=== PATIENT | female | born 1980 | race Caucasian/White ===

== ENCOUNTER → 2023-02-22 10:03 | Outpatient (BNVA) | payer MEDICAID, SELFPAY | PROVIDERS: Visit Provider Physician Assistant Surgical ==

== ENCOUNTER 2023-03-08 13:46 | Outpatient (AMB) | payer OTHER, SELFPAY ==
--- NOTE | 2023-03-08 13:52 | MHC.OFFVISWM ---
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 Lives in [facility]. Her goal is wants to be healthy, 170 lbs. She reports first being concerned about her weight after second . She has tried multiple methods of weight loss including multiple diets and SWL porgram without permanent results. She lives with her and 3 kids. 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 She wakes at: 5:30 am bed at 9- 11 pm. Ocassional coffee - with creamer Breakfast: 8;30 am - Isopure powder mixed with banana, iced cubes and macadamia milk and sugar free syrup. OR 2 fried eggs and a few slices of yancey and tomato. Lunch: 1pm - kids leftovers, crust and cheese OR skips a meal Dinner: 6-7:30 pm - chicken breast with green beans and small amt rice. water or crystal light After dinner: nothing Other snacks: no snacks Liquids: No soda, no fruit juices or sweetened drinks. Alcohol intake: 3d/ week, few shots of vodka, tobacco: none, quit 1.5 years ago, marijuana: every day, 2-3 times per day, smoke or edibles Exercise: 3d/week - walks 1/2 mile 45 minutes - breaks 3 times. stationary bike at home 30 -45 minutes once per week. - can't check calories. Last mammogram: never Last pap smear: up to date control method: tubal ligation ALICE:0 ESS:0 GERD0: QOL: 99 PFSH Surgical History Hx of section Hx of tubal ligation Social History (Updated 02/22/23 @ 10:25 by Ginny Moreno [facility]) Alcohol intake: current Alcohol intake frequency: 0-2 drinks per day Patient Tobacco Use Status: Former Tobacco user Quit Date: 1 YR AGO Physical Exam Const General: cooperative, no acute distress and well developed Nutritional Appearance: obese Orientation/consciousness: patient oriented x3 HEENT Head: Yes normal to inspection Neck Neck: Yes normal visual inspection Thyroid: Thyroid normal Resp Effort & Inspection: normal respiratory effort Auscultation: clear to auscultation bilaterally Cardio Rate: regular rate Rhythm: regular rhythm Heart sounds: S1 normal heart sound present, S2 normal heart sound present and no murmurs GI Inspection: No distended and Yes obesity Palpation (GI): Soft to palpation, nontender and no guarding Skin General skin exam: no rashes or lesions noted and other (warm and dry) Wounds: no wounds Hair: normal Neuro General: patient oriented x3 Extrem General: Yes no pedal edema and Yes no calf tenderness Psych Attitude: cooperative Thought process: Normal thought process present Thought content: Normal thought content present Insight: Good insight present (Psych) Judgement: Good judgement present (Psych) Assessment & Plan Assessment & Plan (1) Morbid obesity: Code(s): E66.01 - Morbid (severe) obesity due to excess calories Plan: This is a 42 yo woman with morbid obesity who will start SWL program to prepare for bariatric surgery. Blood work, h pylori , CXR, ECG, Abd ULS and UGI have been ordered. She is being scheduled for RD and BH initial consultations. She will start SWL classes and watch at 3 classes before her next appt with Malorie. 1. Adequate sleep of 7-8 hours per night discussed 2. Healthy meal plan - stop skipping meals and stop all sweetened drinks All meals/MR's need to take 20 minutes to complete 8:30am - 30 gram shake 12 pm - 30 gram shake 3:30 pm- bar or cc 7 pm- dinner of 6 oz lean protein, 8 oz vegetable, 1 serving fruit Exercise - Cardio 5 d week =LS 2 miles, or walk 30 minutes 1 miel to start then 20 minute mile. The importance of avoiding and breast feeding for at least 18 months after bariatric surgery was discussed in the information session and was reinforced today. Pt will purchase body composition analyzer (recommended list given to patient) and weight herself weekly. Next appt with me in 3 weeks. Text me with any questions and weekly weights. Patient is morbidly obese and is not considered stable at this time.?I spent a total of 60 minutes reviewing/updating records, examining the patient and counseling the patient on weight management as detailed above. (2) Hypothyroid: Code(s): E03.9 - Hypothyroidism, unspecified Orders: Orders Vitamin B12 and Folate Today E03.9 - Hypothyroidism, unspecified, E66.01 - Morbid (severe) obesity due to excess calories Comprehensive Met. Panel Today E03.9 - Hypothyroidism, unspecified, E66.01 - Morbid (severe) obesity due to excess calories C Reactive Protein Today E03.9 - Hypothyroidism, unspecified, E66.01 - Morbid (severe) obesity due to excess calories Ferritin Today E03.9 - Hypothyroidism, unspecified, E66.01 - Morbid (severe) obesity due to excess calories Hemoglobin A1c Today E03.9 - Hypothyroidism, unspecified, E66.01 - Morbid (severe) obesity due to excess calories Insulin Today E03.9 - Hypothyroidism, unspecified, E66.01 - Morbid (severe) obesity due to excess calories IRON PROFILE Today E03.9 - Hypothyroidism, unspecified, E66.01 - Morbid (severe) obesity due to excess calories Lipid Panel Today E03.9 - Hypothyroidism, unspecified, E66.01 - Morbid (severe) obesity due to excess calories PTHI Today E03.9 - Hypothyroidism, unspecified, E66.01 - Morbid (severe) obesity due to excess calories TSH reflex Free T4 Today E03.9 - Hypothyroidism, unspecified, E66.01 - Morbid (severe) obesity due to excess calories Vitamin A Today E03.9 - Hypothyroidism, unspecified, E66.01 - Morbid (severe) obesity due to excess calories Vitamin B1 Today E03.9 - Hypothyroidism, unspecified, E66.01 - Morbid (severe) obesity due to excess calories Vitamin D 25-OH Total Today E03.9 - Hypothyroidism, unspecified, E66.01 - Morbid (severe) obesity due to excess calories Zinc Today E03.9 - Hypothyroidism, unspecified, E66.01 - Morbid (severe) obesity due to excess calories ECG 12 lead EKG Today E03.9 - Hypothyroidism, unspecified, E66.01 - Morbid (severe) obesity due to excess calories FL upper GI w air Today E03.9 - Hypothyroidism, unspecified, E66.01 - Morbid (severe) obesity due to excess calories Complete Blood Count Auto Diff Today E03.9 - Hypothyroidism, unspecified, E66.01 - Morbid (severe) obesity due to excess calories H Pylori Breath Test Today E03.9 - Hypothyroidism, unspecified, E66.01 - Morbid (severe) obesity due to excess calories US abdomen comp w elastography Today E03.9 - Hypothyroidism, unspecified, E66.01 - Morbid (severe) obesity due to excess calories XR chest 2V Today E03.9 - Hypothyroidism, unspecified, E66.01 - Morbid (severe) obesity due to excess calories Referrals Behavioral Health Referral E03.9 - Hypothyroidism, unspecified, E66.01 - Morbid (severe) obesity due to excess calories Nutrition/Dietitian Referral E03.9 - Hypothyroidism, unspecified, E66.01 - Morbid (severe) obesity due to excess calories Coding Level of Care Code New Pt Level 5 (58168) Diagnoses Morbid obesity E66.01 Hypothyroid E03.9
[2023-03-08 14:00] VITALS: BP 125/73; PULSE 94; TEMP 36.3; O2SAT 92; BMI 46.5
[2023-03-12 14:26] LABS: H Pylori Breath Test Negative (Negative)
== END 2023-03-08 14:44 | disposition home or self-care (01) ==
PROVIDERS: Visit Provider Physician Assistant
DX: E66.01 Morbid (severe) obesity due to excess calories (principal); Z68.42 Body mass index [BMI] 45.0-49.9, adult; E03.9 Hypothyroidism, unspecified
CPT/HCPCS: 99205

== ENCOUNTER → 2023-03-08 13:46 | Outpatient (BNVA) | payer OTHER, SELFPAY | PROVIDERS: Visit Provider Physician Assistant | DX: E66.01 Morbid (severe) obesity due to excess calories (principal); Z68.42 Body mass index [BMI] 45.0-49.9, adult; Z11.0 Encounter for screening for intestinal infectious diseases | CPT/HCPCS: 83013; 99202; 99211 ==

== ENCOUNTER 2025-04-05 16:21 | Emergency (ER) | payer OTHER, SELFPAY ==
--- NOTE | ~2025-04-05 | US_ITS ---
CLINICAL HISTORY: calf pain swelling Right lower extremity venous duplex ultrasound Comparison: None available Findings: The visualized deep veins are fully compressible with normal flow. No popliteal cyst. There are lymph nodes in the right groin with normal morphology which measure up to 1.1 cm in long axis. Impression: No deep vein thrombosis. This document has been electronically signed by: Jemima Metzger MD on 04/05/2025 18:25:39
[2025-04-05 16:30] VITALS: BP 117/58; PULSE 77; RESP 16; TEMP 36.6; O2SAT 98; BMI 32.2
--- NOTE | 2025-04-05 16:30 | ED_ITS ---
HPI - General Adult General Chief complaint: Extremity Injury, Lower Stated complaint: ? bloodclot rt leg, sent from urgent care Time Seen by Provider: 04/05/25 18:32 Source: patient, RN notes reviewed and old records reviewed Mode of arrival: ambulatory Limitations: no limitations History of Present Illness ED Provider: Judd GAMBLE narrative: Patient is a 44y/o F presenting to the ED from urgent care to rule out DVT for tenderness/swelling to right calf. Had meniscal tear, ? MCL tear to right knee 1.5 yrs ago but due to insurance issues, did not have surgery, pain has persisted. States is the last 2 mos has been bedridden due to the pain. Recently had appointment with new PCP who has referred her to ortho again for evaluation of her right knee pain. PCP was concerned that patient had some right calf tenderness and swelling, attempted to order outpatient U/S, but was told this was unavailable through [facility] on the weekend, so PCP referred pt to the ED. Patient states she already has adequate follow up regarding prior knee injury, is only here to rule out DVT. Related Data Home Medications ?Medication ?Instructions ?Recorded ?Confirmed levothyroxine 100 mcg capsule 100 mcg PO DAILY 3 Allergies Allergy/AdvReac Type Severity Reaction Status Date / Time codeine Allergy Severe Anaphylaxis Verified 04/05/25 16:32 Sulfa (Sulfonamide Allergy Mild HIVES Verified 04/05/25 16:32 Antibiotics) Review of Systems 2 Review of Systems: As per HPI Yes all other systems are reviewed and are negative PMFSH Past Medical History Surgical History Hx of section Hx of tubal ligation Social History Social History Alcohol intake: current Alcohol intake frequency: 0-2 drinks per day Patient Tobacco Use Status: Former Tobacco user Advance Directives: No Advance Directives Information Provided: No Physical Exam ED Vital Signs: Vital Signs - 24 hr 04/05/25 16:30 04/05/25 18:32 Temperature 97.8 F 97.8 F Pulse Rate 77 77 Respiratory Rate 16 16 Blood Pressure 117/58 L 117/58 L Pulse Oximetry 98 98 Oxygen Delivery Method Room Air Room Air BMI result Body Mass Index 32.2 Vital signs have been reviewed and appear to be correct. Blood pressure normal. Heart rate normal. Respiratory rate normal. Temperature normal. Oxygen saturation normal. Extrem Right lower extremity: knee (diffuse swelling), lower leg Details: tenderness Location: of the posterior calf and localized swelling Location: of the proximal lower leg and foot Details: vascular exam Details: dorsalis pedis pulse present, posterior tibial pulse present and normal capillary refill Course Course Course Narrative: This is a rapid medical exam performed by Rachelle Whaley NP: Additional HPI, ROS, PE not included below will be deferred to primary provider. Patient is a 44y/o F presenting to the ED from urgent care to rule out DVT for tenderness/swelling to right calf. Had meniscal tear, ? MCL tear to right knee 1.5 yrs ago but due to insurance issues, did not have surgery, pain has persisted. States is the last 2 mos has been bedridden due to the pain. Plan: labs, U/S Medical Decision Making Medical Decision Making [facility] Narrative: Patient is a 44y/o F presenting to the ED from urgent care to rule out DVT for tenderness/swelling to right calf. Had meniscal tear, ? MCL tear to right knee 1.5 yrs ago but due to insurance issues, did not have surgery, pain has persisted. On exam patient is awake, A+Ox3, VS WNL, afebrile, normal neurological exam without focal deficits, physical exam findings as above. Given reported symptoms and physical exam findings, initial differential includes but is not limited to DVT, calf strain/sprain. Labs grossly within normal limits. Ultrasound of right lower leg notable for no evidence of DVT. My interpretation is in agreement with the radiologist's interpretation. Results discussed with patient and all questions answered. Discussed with patient that if symptoms persist beyond the next 5-7 days, she should follow up with PCP for repeat ultrasound outpatient. Return precautions discussed. Patient verbalized understanding of and agreement with plan. Differential Diagnosis Differential Diagnoses: The differential diagnosis associated with the presentation includes As per [facility] Admission/Observation Consideration of admission/observation: Escalation of care including admission/observation considered Patient would have been admitted to the hospital and transferred to appropriate facility had their clinical presentation warranted hospital admission. Lab Data [facility] Lab Attestation statement: I reviewed the patient's lab results. as per [facility] 04/05/25 16:46 04/05/25 16:45 Labs: Lab Results 04/05/25 04/05/25 Range/Units 16:45 16:46 WBC 11.1 H (4.8-10.8) X10*3/uL RBC 3.41 L (4.20-5.50) X10*6/uL Hgb 11.8 L (12.0-16.0) g/dl Hct 35.1 L (37.0-47.0) % MCV 102.9 H (80.0-98.0) fL MCH 34.6 H (27.0-33.0) pg MCHC 33.6 (31.0-35.0) g/dl RDW 12.8 (11.0-16.0) % Plt Count 461 H (160-400) X10*3/uL MPV 9.3 L (9.4-12.3) fL Immature Gran % (Auto) 0.4 (0.0-0.4) % Neut % (Auto) 77.1 H (45-73) % Lymph % (Auto) 18.5 L (20-40) % [place] % (Auto) 3.3 (2-11) % Eos % (Auto) 0.2 (0-4) % Baso % (Auto) 0.5 (0-2) % Lymph # (Auto) 2.1 (1.2-4.9) X10*3/uL [place] # (Auto) 0.4 (0.1-1.2) X10*3/uL Eos # (Auto) 0.0 (0.0-0.4) X10*3/uL Baso # (Auto) 0.1 (0.0-0.2) X10*3/uL Abs Immat Gran (auto) 0.04 H (0.00-0.03) X10*3/uL Absolute Neuts (auto) 8.6 H (2.0-8.3) x10*3/uL Absolute Nucleated RBC 0.000 (0.0-0.012) X10*3/uL Nucleated RBC % (auto) 0.0 (0.0-0.2) /100WBC Sodium 138 (135-145) mmol/L Potassium 4.3 (3.3-5.1) mmol/L Chloride 105 (96-108) mmol/L Carbon Dioxide 25 (22-29) mmol/L Anion Gap 12 (12-20) BUN 12 (9-16) mg/dL Creatinine 0.58 (0.5-1.4) mg/dL Estim Creat Clear Calc 138.1 Estimated GFR > 60 Random Glucose 104 (60-115) mg/dL Calcium 9.5 (8.4-10.2) mg/dL Total Bilirubin 0.1 (0.0-1.0) mg/dL AST 15 (5-31) U/L ALT 9 (0-31) U/L Alkaline Phosphatase 115 (39-117) U/L Total Protein 7.7 (6.5-8.0) g/dL Albumin 4.0 (3.5-5.0) g/dL Independent Interpretation I performed an independent interpretation of an: Ultrasound Interpretation: No evidence of DVT to right lower extremity on ultrasound. Radiology Impression Discussion of test interpretation with radiology: I have reviewed the radiologist's reading. Radiologist Impression: Right lower extremity venous duplex ultrasound Comparison: None available Findings: The visualized deep veins are fully compressible with normal flow. No popliteal cyst. There are lymph nodes in the right groin with normal morphology which measure up to 1.1 cm in long axis. Impression: No deep vein thrombosis. External Record Review External record reviewed: Inpatient record, Office record and Outpatient record Discharge Plan Discharge Clinical Impression: Pain in right lower leg Patient Disposition: Home, Self-Care Additional Instructions: You were evaluated in the emergency department today for pain and swelling to her right lower leg. Your ultrasound did not show evidence of a DVT, also known as a blood clot. We recommend that you keep your follow-up appointment with your PCP and orthopedics for further evaluation of your knee pain. If you continue to have calf pain and swelling, we recommend that you discuss possible repeat ultrasound in 1 week with your PCP. Return to the emergency department with any new or concerning symptoms. Prescriptions: No Action levothyroxine 100 mcg capsule 100 mcg PO DAILY Interventions: ED Discharge Assessment Last Done: 04/05/25 18:32 Print Language: Faroese
[2025-04-05 17:01] LABS: MANUAL DIFF FLAG NO
[2025-04-05 17:03] LABS: Hematocrit 35.1 % (37.0-47.0); Hemoglobin 11.8 g/dl (12.0-16.0); Imm Gran Abs Auto 0.04 X10*3/uL (0.00-0.03); Imm Gran Pct Auto 0.4 % (0.0-0.4); Lymphocytes Absolute Auto 2.1 X10*3/uL (1.2-4.9); Mean Corpuscular HGB Conc 33.6 g/dl (31.0-35.0); Mean Corpuscular Hemoglobin 34.6 pg (27.0-33.0); Mean Corpuscular Volume 102.9 fL (80.0-98.0); NRBC Abs Auto 0.000 X10*3/uL (0.0-0.012); NRBC Pct Auto 0.0 /100WBC (0.0-0.2); Platelet Count 461 X10*3/uL (160-400); Red Blood Count 3.41 X10*6/uL (4.20-5.50); White Blood Count 11.1 X10*3/uL (4.8-10.8)
[2025-04-05 17:17] LABS: Alanine Aminotransferase 9 U/L (0-31); Albumin Level 4.0 g/dL (3.5-5.0); Alkaline Phosphatase 115 U/L (39-117); Anion Gap 12 (12-20); Aspartate Amino Transferase 15 U/L (5-31); Blood Urea Nitrogen 12 mg/dL (9-16); Calcium 9.5 mg/dL (8.4-10.2); Carbon Dioxide 25 mmol/L (22-29); Chloride 105 mmol/L (96-108); Creatinine Clr Calc Pharmacy 138.1; Estimated Glomerular Filt Rate > 60; Potassium 4.3 mmol/L (3.3-5.1); Sodium 138 mmol/L (135-145); Total Protein 7.7 g/dL (6.5-8.0)
[2025-04-05 18:32] VITALS: BP 117/58; PULSE 77; RESP 16; TEMP 36.6; O2SAT 98
--- OUTSIDE RECORDS SUMMARY | 2025-04-05 18:40 | XMS_ITS | Clinical Summary ---
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 4 Active albuterol HFA (PROAIR HFA ; PROVENTIL HFA ; VENTOLIN HFA) 90 mcg/actuation inhaler Inhale 1-2 puffs by mouth. 4 Active fluticasone HFA (FLOVENT HFA) 110 mcg/actuation inhaler Inhale 1 puff by mouth. 1 Active levothyroxine (SYNTHROID, LEVOTHROID) 112 mcg tablet 4 Active nicotine polacrilex (NICORETTE) [address] 1 lozenge (2 mg total) into mouth between cheek and gum. 4 Active loratadine (CLARITIN) 10 mg tablet Take 1 tablet (10 mg total) by mouth. 1 Active hydrOXYzine HCL (ATARAX) 10 mg tablet TAKE 1 TABLET BY MOUTH THREE TIMES A DAY NEEDED FOR ANXIETY 90 tablet 4 Active polyethylene glycol (MIRALAX) 17 gram packetIndication s:Chronic idiopathic constipation Take 17 g by mouth 1 (one) time each day. 510 g 11 5 08/05/19 26 Active Additional Information Patient not taking.Reported on 09/08/2024 Active Problems Problem Noted Date Diagnosed Date Ventral hernia without obstruction or gangrene 1 08/25/2023 Alcohol use disorder 06/24/2024 Adrenal nodule ([facility]/HCC V24) 06/24/2024 Hepatomegaly 06/24/2024 Assessment & Plan (08/05/2024 4:25 PM EST): Relieved hepatic steatosis in depth along with cirrhosis. Discussed alcohol use in depth during our visit. I have provided the patient with resources for alcohol use disorder, which include numbers for detox and clinic facilities that may assist with cutting back and/or quitting alcohol consumption. I encouraged her to call, her also noted he can help with childcare if it means she can work towards sobriety. It does appear she has a good support system in place. I briefly touched on cirrhosis and made her aware that continued alcohol use at this rate may lead to cirrhosis with time. I gave her handouts on both PEREZ and cirrhosis for review at home. She has yet to complete the bloodwork ordered by PCP for concern, which includes hepatitis panels and hepatic function test. I am adding on a few other tests to further evaluate her liver, to include a PEREZ fibrotest. Advised her if labwork is WNL, she may follow up in 1 year for U/S recall. 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 Hypothyroidism 09/01/2021 Allergic rhinitis 01/10/2021 Hidradenitis suppurativa 06/29/2020 Attention deficit hyperactivity disorder (ADHD) 05/17/2020 Chronic low back pain with sciatica 05/17/2020 Agoraphobia 12/29/2014 Anxiety 12/29/2014 Bipolar 1 disorder ([facility]/HCC V24, [facility]/HCC V28) Overview (05/07/2024): [facility] [place] 09/21/14 PTSD (post-traumatic stress disorder) 12/29/2014 Marijuana smoker 01/09/2014 Cigarette smoker 01/09/2014 Asthma 12/03/2012 Surgical History Surgery Date Site/Laterality Comments SECTION PROCEDURE: HISTORICAL ; COMMENT: x 2; 2008, 2014 Medical History Medical History Date Comments Anorexia DX:Anorexia; COM MENT: hospitalized in past, well controlled now Asthma DX:Asthma PTSD (post-traumatic stress disorder) 12/29/2014 DX:PTSD (post-traumatic stress disorder) Anxiety 12/29/2014 DX:Anxiety Bipolar 1 disorder ([facility] V24, [facility] V28) 12/29/2014 DX:Bipolar 1 disorder (HCC); COMMENT: [facility] 09/21/14 Agoraphobia 12/29/2014 DX:Agoraphobia Morbid obesity with BMI of 4 5.0-49.9, adult ([facility] V24, [facility] V28) 04/28/2022 DX:Morbid obesity wit h BMI of 45.0-49.9, adult ([facility]) Family History Medical History Relation Name Comments Diabetes Sister Biological sist er; adopted together Relation Name Status Comments Sister Alive Social History Tobacco Use Types Packs/Day Years Used Date Smoking Tobacco: Every Day Cigarettes Last attempted to quit: 07/30/2017 Smokeless Tobacco: Current Last attempted to quit: 10/14/2021 Tobacco Cessation:Ready to Q uit: Not Asked; Counseling Given: Not Answered Alcohol Use Standard Drinks/Week Comments Yes 7 (1 standard drink = 0.6 oz pur e alcohol) yes Comments No Sex and Gender Information Value Date Recorded Sex Assigned at Not on file Legal Sex Female 2:18 AM EST Gender Identity Not on file Sexual Orientation Not on file Obstetrics History Last Filed Vital Signs Vital Sign Reading Time Taken Comments Blood Pressure 116/70 09/08/2024 1:38 PM EST Pulse 94 09/08/2024 1:38 PM EST Temperature 36.3 C (97.4 F) 09/08/2024 1:38 PM EST Respiratory Rate 16 09/08/2024 1:38 PM EST Oxygen Saturation - - Inhaled Oxygen Concentration - - Weight 100 kg (220 lb 9.6 oz) 09/08/2024 1:38 PM EST Height 165.1 cm (5' 5 ) 08/07/2024 2:52 PM EST Body Mass Index 36.71 08/07/2024 2:52 PM EST Plan of Treatment Health Maintenance Due Date Last Done Comments Breast Cancer Screening 1982 Hepatitis A Vaccines (1 of 2 - Risk 2-dose series) 2001 Hepatitis B Vaccines (1 of 3 - 19+ 3-dose series) 2001 Pneumococcal Vaccine: Pediat rics (0 to 5 Years) and At-Risk Patients (6 to 49 Years) (1 of 2 - PCV) 2001 Cervical Cancer Screening: P ap Smear 12/18/2020 12/18/2017 HIV Screening 06/18/2022 Social Influencers of Health Screening 06/18/2022 Depression Screening 07/16/2024 DTaP,Tdap,and Td Vaccines (2 - Td or Tdap) 07/22/2024 07/22/2014 COVID-19 Vaccine (1 - 2023-2 5 season) 2025 Influenza Vaccine (#1) 2025 Cholesterol Screening (Lipid Panel) 02/17/2029 02/18/2024 Hepatitis C Screening Completed 08/05/2024 HIB Vaccines Aged Out No longer eligi ble based on patient's age to complete this topic HPV Vaccines Aged Out No longer eligi ble based on patient's age to complete this topic IPV Vaccines Aged Out No longer eligi ble based on patient's age to complete this topic MMR Vaccines Aged Out No longer eligi ble based on patient's age to complete this topic Meningococcal ACWY Vaccine Aged Out N o longer eligible based on patient's age to complete this topic Meningococcal B Vaccine Aged Out No l onger eligible based on patient's age to complete this topic RSV Immunization Patients Un gael 20 months Aged Out No longer eligible b ased on patient's age to complete this topic Varicella Vaccines Aged Out No longer eligible based on patient's age to complete this topic Procedures Procedure Name Priority Date/Time Associated Diagnosis Comments HEPATITIS C ANTIBODY Routine 08/05/2024 4:48 PM EST Elevated liver enzymes PAP SMEAR Routine 12/18/2017 from Last 3 Months or Most Recently Relevant to Health Maintenance Results * Hepatitis C antibody (08/05/2024 4:48 PM EST) Hepatitis C Antibody Negative Negative LAB CHEMISTRY METHOD 08/05/2024 7:30 PM EST [facility] Blood Venous blood specimen / Unknown Venipuncture / Unknown 08/05/2024 4:48 PM EST 08/05/2024 4:48 PM EST Josef Duenas MD LAB BLOOD ORDERABLES Final Result [facility] [address] [place] [address], * Pap smear (12/18/2017) 12/18/2017 Narrative HISTORICAL TESTING LAB RESULTING AGENCY - 12/21/2017 8:06 AM EDT [id number] THINPREP PAP, IMAGED: NEGATIVE FOR SQUAMOUS INTRAEPITHELIAL LESION AND MALIGNANCY . RESULT OF APTIMA HIGH RISK HPV ASSAY: NEGATIVE (SEROTYPES 16,18,31,33,35,39,45,51,52,56,58,59,66,68) BIPIN FRANK(ASCP) (CASE ELECTRONICALLY SIGNED 12 20 2017) ADEQUACY: SATISFACTORY. ENDOCERVICAL/TRANSFORMATION ZONE COMPONENT PRESENT. SOURCE: THINPREP PAP HPV ANY DX: REFLEX 16 AND 18 CLINICAL INFORMATION: HPV ANY DIAGNOSIS. 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
--- OUTSIDE RECORDS SUMMARY | 2025-04-05 18:40 | XMS_ITS ---
Author Name [facility] Organization Unknown Care Team Organization Name Specialty Phone Email Start Date End Da te [facility] Bella Sherwood [facility] 05/23/2022 4
--- OUTSIDE RECORDS SUMMARY | 2025-04-05 18:40 | XMS_ITS | Clinical Summary ---
Author Organization [facility] Address [address] [place], [place] [id number] Phone Care Team Providers Care Sustainability Officer Name Role Phone Bella Sherwood MD Primary Care Provider [phone] Medications levothyroxine (SYNTHROID, LEVOTHROID) 112 MCG tabletIndication s:Jocelyn's thyroiditis TAKE 2 TABLETS BY MOUTH ON MONDAYS ONLY. TAKE 1 TAB DAILY THE REMAINDER OF THE WEEK. 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 Not on nova e 12/22/2022 Are you concerned about learning? Not on file 12/22/2022 No 12/22/2022 No 12/22/2022 Digital Access Answer Date Recorded No 12/22/2022 No 12/22/2022 Reliable internet access at home? Not on file 12/22/2022 Device with a working camera? Not on file Comments Unknown Sex and Gender Information Value Date Recorded Sex Assigned at Not on file Legal Sex Female 4:04 PM EST Gender Identity Not on file Sexual Orientation Not on file Last Filed Vital Signs Vital Sign Reading Time Taken Comments Blood Pressure 123/72 07/21/2022 10:31 AM EST Pulse 86 07/21/2022 10:31 AM EST Temperature - - Respiratory Rate - - Oxygen Saturation - - Inhaled Oxygen Concentration - - Weight 127.5 kg (281 lb) 07/21/2022 10:31 AM EST Height 165.1 cm (5' 5 ) 07/21/2022 10:31 AM EST Body Mass Index 46.76 07/21/2022 10:31 AM EST Plan of Treatment Health Maintenance Due Date Last Done Comments Adult Td,Tdap Booster 1982 DEPRESSION SCREENING 1994 SMOKING Hx and SMOKELESS TOB ACCO SCREENING 12/03/1995 HEPATITIS C SCREENING 2000 HIV ONE-TIME SCREENING (18-6 5 YEARS) 2000 PNEUMOCOCCAL VACCINES (0-49 years) (1 of 2 - PCV) 2001 PAP SMEAR 12/03/2003 SCREENING FOR DIABETES 2017 MAMMOGRAM 2022 TSH LEVEL 09/17/2024 09/18/2023 INFLUENZA VACCINE (#1) 2025 COVID-19 VACCINE ( - 2023-2 5 season) 2025 HEPATITIS A VACCINES Aged Out No long er eligible based on patient's age to complete this topic HIB VACCINES Aged Out No longer eligi ble based on patient's age to complete this topic MENINGOCOCCAL VACCINES (ACWY) Aged Out No longer eligible based on patient's age to complete this topic MENINGOCOCCAL VACCINES (B) Aged Out N o longer eligible based on patient's age to complete this topic Medical Devices Not on file Insurance [facility] Care Teams Sustainability Officer Relationship Specialty Start Date End Date Bella Sherwood MD [address] [place] [id number] PCP - General 09/18/23 Additional Source Comments The information contained in this document represents components of the legal health record. It is not the complete legal health record.[facility]
== END 2025-04-05 18:42 | disposition home or self-care (01) ==
PROVIDERS: Registered Nurse Emergency; Emergency Provider Emergency Medicine
DX: M79.604 Pain in right leg (principal); R60.0 Localized edema; Z79.899 Other long term (current) drug therapy
CPT/HCPCS: 36415; 80053; 85025; 93971; 99282; 99284

== ENCOUNTER → 2025-04-05 16:34 | Outpatient (BNV) | payer OTHER, SELFPAY | PROVIDERS: Emergency Provider Emergency Medicine; Visit Provider Radiology Diagnostic Radiology | DX: M79.661 Pain in right lower leg (principal); M79.89 Other specified soft tissue disorders | CPT/HCPCS: 93971 ==

== ENCOUNTER 2025-05-20 10:46 | Emergency (ER) | payer OTHER, SELFPAY ==
--- NOTE | ~2025-05-20 | XR_ITS ---
Exam: X-ray, bilateral knees.XR KNEE 4 VIEWS BILATERAL TECHNIQUE: Four views lower extremity joint, bilateral knees INDICATION: knee pain COMPARISON: None available. FINDINGS: RIGHT KNEE: There is mild to moderate narrowing of the medial greater than lateral joint spaces. Small marginal osteophyte are present along the medial joint line and minute osteophytes are seen involving patella. There is a joint effusion. LEFT KNEE: There is mild narrowing of the medial greater than lateral joint space. There are tricompartmental marginal osteophytes. Small joint effusion is evident. XR/XR Knee Brannon 4V IMPRESSION: Right knee: Mild to moderate osteoarthritis with a joint effusion Left knee: Mild osteoarthritis with a small joint effusion. Electronically signed by: Jimmie Kaye MD 05/20/2025 11:40 AM KARTHIK
--- NOTE | ~2025-05-20 | US_ITS ---
EXAMINATION: US TRIPLEX LOWER EXTREMITY, BILATERAL CLINICAL INFORMATION: Pain, both lower extremities. COMPARISON: None available. TECHNIQUE: Color-flow triplex imaging with spectral analysis and compression Doppler were performed on the bilateral lower extremities. FINDINGS: Respiratory variation, normal compression and augmented flow are demonstrated in the interrogated common femoral vein, superficial femoral vein, profunda femoral vein, popliteal vein and midcalf peroneal and posterior tibial venous segments, both lower extremities. There is no Marin's cyst. US/US venous duplex LE BI IMPRESSION: No acute deep venous thrombosis interrogated veins of the lower extremities. Negative for DVT.. Electronically signed by: Anatoliy Baird MD 05/20/2025 02:25 PM KARTHIK
[2025-05-20 10:55] VITALS: BP 150/120; PULSE 86; RESP 18; TEMP 36.6; O2SAT 98; BMI 33.0
--- NOTE | 2025-05-20 11:01 | ED.GENADULT ---
HPI - General Adult General Chief complaint: Extremity Injury, Lower Stated complaint: Pain On Both Knees Time Seen by Provider: 05/20/25 12:39 Source: patient Mode of arrival: ambulatory Limitations: no limitations History of Present Illness ED Provider: SAMINA HARRIS PA-C HPI narrative: 44 year old female presents to the ED today for evaluation of acute on chronic knee pain (R>L). Reports longstanding history of knee issues x18 months. She denies previous blunt injury/trauma. She was referred to [facility] where they haven't found anything wrong with my knee . She has since been referred to an arthritis specialist however she has been having difficulty with the referral. She has not been able to see them. She has been placed on various medication regimens including arthritic creams, prednisone, NSAIDs. She has been taking motrin at home with little relief. Endorses increasing pain and swelling, primarily to her right knee, making it difficult to ambulate. Denies numbness/tingling/weakness of the LEs. No recent injury/trauma. No fever, chills. Denies tick or insect bites. Related Data Home Medications ?Medication ?Instructions ?Recorded ?Confirmed levothyroxine 100 mcg capsule 100 mcg PO DAILY 02/22/23 Previous Rx's ?Medication ?Instructions ?Recorded diclofenac sodium 50 mg 50 mg PO BID PRN pain (scale score 05/20/25 tablet,delayed release 4-6) #30 tabs Allergies Allergy/AdvReac Type Severity Reaction Status Date / Time codeine Allergy Severe Anaphylaxis Verified 05/20/25 10:58 Sulfa (Sulfonamide Allergy Mild HIVES Verified 05/20/25 10:58 Antibiotics) bee pollen (bee stings) Allergy Unknown Verified 05/20/25 10:58 Review of Systems Review of Systems: Yes all other systems are reviewed and are negative PMFSH Past Medical History Attestation statement: The following information was validated with the patient. Source: old records reviewed and nursing notes reviewed Surgical History Hx of tubal ligation Hx of section Social History Social History Alcohol intake: current Alcohol intake frequency: 0-2 drinks per day Patient Tobacco Use Status: Former Tobacco user Smoked in Last 30 Days: Yes Use of substances other than those prescribed or required for medical reasons: Yes Substance Use Type: Marijuana Advance Directives: No Advance Directives Information Provided: No Do you have a plan to hurt others: No Plan Physical Exam ED Vital Signs: Vital Signs - 24 hr 05/20/25 10:55 05/20/25 12:25 05/20/25 15:20 Temperature 98 F 97.8 F Pulse Rate 86 85 100 Respiratory Rate 18 18 18 Blood Pressure 150/120 H 118/66 124/70 Pulse Oximetry 98 97 99 Oxygen Delivery Method Room Air Room Air Room Air BMI result Body Mass Index 33.0 Vital signs stable, afebrile General: Well appearing, in no acute distress. Skin: Warm, dry, intact. No rashes or lesions. Head: Normocephalic, atraumatic. EENT: Hearing is intact b/l. Conjunctiva clear. Sclera is anicteric. PERRLA. EOM intact. Moist mucous membranes.? Cardiac: Chest wall symmetric. RRR Lungs: Normal respiratory effort without accessory muscle use. CTA bilaterally Ext: + noted swelling to right knee when compared to left. no overlying erythema, deformity. ROM intact to bilateral knees, pain induced with flexion and extension of right knee, somewhat limited due to swelling. Diffusely tender to palpation of right knee, no palpable deformity, crepitus, warmth. No calf tenderness bilaterally. No pitting edema. nv intact distally. Neuro: AOx3. Normal speech Course Course Course Narrative: RME: 44-year-old female presents to ED for bilateral knee pain for 18 months. Patient was seen by you are going clinic specialist who does not know what going on head knee. Patient states posterior meniscus knee pain bilaterally. Patient states trouble ambulating and sometimes being bed ridden due to bilateral knee pain. Patient has not had MRI. Positive for posterior bilateral knee tenderness. Reevaluation(s) Reevaluation #1: X-ray right knee showing [id number] osteoarthritis with associated joint effusion. X-ray of left knee showing mild arthritis with a small joint effusion. Venous duplex of bilateral lower extremities does not demonstrate DVT or popliteal cyst. On exam, her right knee is quite swollen. there is no erythema, warmth, open wounds, rashes. She is able to perform active ROM of right knee however this induces pain, there some difficulty due to the swelling. Patient is very frustrated. States that her drove her here, she did not want to come for evaluation however continues to verbally escalate, stating that all you guys do is throw pills at me . I discussed different management options with patient. Given significant swelling with joint effusion, I offered to aspirate the fluid which should provide her with a good amount of pain relief. She is adamantly declining at this time, yelling at both myself and my student who is at bedside with me. Stating she wants nothing to do with needles. States that has been offered to her various times before and she refuses. She has been on meloxicam and has trialed diclofenac gel. I discussed starting her on diclofenac p.o. which is 1st line for arthritis pain. I even put in an order for this in the ED however patient refused the medication and told the RN to go away . I also offered her physical therapy evaluation as she states it is difficult for her to perform her ADLs at home with her children. Continues to yell at me, stating that she has been offered this previously. Is not interested. Her exam is not consistent with septic joint. Presentation is not consistent with gout or pseudogout. I do not feel as though labs are warranted at this time. she has had extensive work up at [facility] and has since been referred to an Arthritis specialist . Patient is refusing any intervention that I offer her. There is not much more we can do from an emergency department standpoint. There is no surgical or emergent intervention warranted at this time. Patient continues to verbally escalate stating that she is leaving. I informed patient that she is welcome to return to the ED at any time. In the mean time, I will be sending her an rx for PO diclofenac. educated on RICE therapy. I have also provided her with a referral to our orthopedic team as she has not yet had an MRI of her right knee and may benefit from one. Medications Administered Discontinued Medications Generic Name Dose Route Start Last Admin Trade Name Freq PRN Reason Stop Dose Admin Diclofenac Sodium 50 mg 05/20/25 12:54 05/20/25 14:49 Diclofenac Sodium Delayed Rel 50 Mg Tablet.Dr EAGLE 05/20/25 12:55 Not Given ONCE ONE Medical Decision Making Medical Decision Making MDM Narrative: 44 year old female presents to the ED today for evaluation of acute on chronic knee pain (R>L). Differential diagnosis includes arthritis, MSK sprain/strain, tendonitis, bursitis, joint effusion, Marin's cyst. Her exam is not consistent with gout/pseudogout. I do not have concern for septic joint, Lyme arthritis. There could possibly be some sort of underlying autoimmune component given length of symptoms however it appears to be more arthritic. Unlikely DHE, neurovascular compromise, threat to limb, compartment syndrome. X-rays and venous duplex ordered from triage. Plan for pain control and re-evaluation. Differential Diagnosis Differential Diagnoses: The differential diagnosis associated with the presentation includes As above Admission/Observation Not indicated Independent Interpretation I performed an independent interpretation of an: Plain X-Ray and Ultrasound Interpretation: X-ray of bilateral knees showing joint effusions, no obvious fractures Venous duplex without popliteal cyst Radiology Impression Discussion of test interpretation with radiology: I have reviewed the radiologist's reading. Radiologist Impression: Procedure(s): US venous duplex LE BI Accession Number(s): [id number] cc: Garrison Brownlee; Physician,Unknown ~ Reason for Exam: bilateral posterior knee pain EXAMINATION: US TRIPLEX LOWER EXTREMITY, BILATERAL CLINICAL INFORMATION: Pain, both lower extremities. COMPARISON: None available. TECHNIQUE: Color-flow triplex imaging with spectral analysis and compression Doppler were performed on the bilateral lower extremities. FINDINGS: Respiratory variation, normal compression and augmented flow are demonstrated in the interrogated common femoral vein, superficial femoral vein, profunda femoral vein, popliteal vein and midcalf peroneal and posterior tibial venous segments, both lower extremities. There is no Marin's cyst. US/US venous duplex LE BI IMPRESSION: No acute deep venous thrombosis interrogated veins of the lower extremities. Negative for DVT.. Procedure(s): XR Knee Brannon 4V Accession Number(s): [id number] cc: Garrison Brownlee; Physician,Unknown ~ Reason for Exam: knee pain Exam: X-ray, bilateral knees.XR KNEE 4 VIEWS BILATERAL TECHNIQUE: Four views lower extremity joint, bilateral knees INDICATION: knee pain COMPARISON: None available. FINDINGS: RIGHT KNEE: There is mild to moderate narrowing of the medial greater than lateral joint spaces. Small marginal osteophyte are present along the medial joint line and minute osteophytes are seen involving patella. There is a joint effusion. LEFT KNEE: There is mild narrowing of the medial greater than lateral joint space. There are tricompartmental marginal osteophytes. Small joint effusion is evident. XR/XR Knee Brannon 4V IMPRESSION: Right knee: Mild to moderate osteoarthritis with a joint effusion Left knee: Mild osteoarthritis with a small joint effusion. Electronically signed by: Jimmie Kaye MD 05/20/2025 11:40 AM EST External Record Review External record reviewed: Inpatient record Prescription Management I considered prescription management with: Pain Medication Social Determinants Patient?s care significantly limited by Social Determinants of Health including: Other Social Determinant of Health Critical Care Time Critical Care Time Critical Care Time: No Discharge Plan Discharge Clinical Impression: Effusion of knee joint right, Osteoarthritis Patient Disposition: Home, Self-Care Instructions: Osteoarthritis (ED), Swollen Knee Joint (ED) Additional Instructions: You were evaluated in the ED today for bilateral knee pain, right worse than left. The x-rays of your knees show osteoarthritis with associated effusion within both joints. Your right knee is quite swollen. We offered to drain this for you to provide relief. You were adamantly declining at this time. We have offered you physical therapy evaluation. You are declining. I am sending diclofenac to your pharmacy. You may take this for pain/discomfort. Follow up with the bone/joint specialists. Return with any new or worsening symptoms. In the case of an emergency call 911. Prescriptions: New diclofenac sodium 50 mg tablet,delayed release (DR/EC) 50 mg PO BID PRN (Reason: pain (scale score 4-6)) Qty: 30 0RF No Action levothyroxine 100 mcg capsule 100 mcg PO DAILY Referrals: [facility] [place] Orthopedic Surgeons [Provider Group] Physician,Unknown J [Primary Care Provider, Medical] Interventions: ED Discharge Assessment Last Done: 05/20/25 15:20 Discharge Date/Time: 05/20/25 15:21 Print Language: Latvian
[2025-05-20 12:25] VITALS: BP 118/66; PULSE 85; RESP 18; O2SAT 97
--- NOTE | 2025-05-20 14:49 | PC.NURSE ---
Pt refused PO meds, told RN to go away
[2025-05-20 15:20] VITALS: BP 124/70; PULSE 100; RESP 18; TEMP 36.6; O2SAT 99
--- OUTSIDE RECORDS SUMMARY | 2025-05-20 15:29 | XMS_ITS | Clinical Summary ---
Author Organization [facility] Address [address] [place], [place] [id number] Phone Care Team Providers Care Bale Sewer Name Role Phone Bella Sherwood MD Primary Care Provider [phone] Medications levothyroxine (SYNTHROID, LEVOTHROID) 112 MCG tabletIndication [...] VACCINE (#1) 2025 COVID-19 VACCINE ( - 2024-2 6 season) 2025 HEPATITIS A VACCINES Aged Out [...] topic Medical Devices Not on file Insurance [facility] ACO Care Teams Bale Sewer Relationship Specialty Start Date End Date Bella Sherwood MD [address] [place] [id number] PCP - General 09/18/23 Additional Source Comments The information contained in this document represents components of the legal health record. It is not the complete legal health record.[facility]
== END 2025-05-20 15:21 | disposition home or self-care (01) ==
PROVIDERS: Emergency Provider Emergency Medicine
DX: M25.462 Effusion, left knee (principal); M25.461 Effusion, right knee; M17.0 Bilateral primary osteoarthritis of knee
CPT/HCPCS: 73564; 93970; 99284

== ENCOUNTER → 2025-05-20 10:59 | Outpatient (BNV) | payer OTHER, SELFPAY | PROVIDERS: Visit Provider Radiology Diagnostic Radiology | DX: M25.561 Pain in right knee (principal); M25.562 Pain in left knee | CPT/HCPCS: 73564; 93970 ==